=== PATIENT | female | born 1955 | race Caucasian/White ===

== ENCOUNTER → 2017-03-18 | Outpatient (CLI) | payer OTHER ==
[~2017-03-18] MED LIST: B CO1CAP2 PO; CAFF200T13 PO; CIPR-255 PO; GLUC1TAB22 PO; IBUP1CAP9 PO; MULT-839 PO; NUTRTAB44 PO; OMEG10002 PO; ONDA4TAB7 SL; RXC5 PO; TRAM-10 PO; [UNRECOGNIZED DRUG - CODE] PO
--- NOTE | 2017-03-19 14:36 | MAMMOGRAPHY REPORT ---
BILATERAL DIGITAL SCREENING MAMMOGRAM TOMOSYNTHESIS WITH CAD: 03/18/2017 CLINICAL HISTORY: Routine screening. Patient has no complaints. TECHNIQUE: Breast tomosynthesis in addition to standard 2D mammography was performed. Current study was also evaluated with a Computer Aided Detection (CAD) system. COMPARISON: Comparison is made to exams dated: 03/12/2016 mammogram, 03/08/2015 mammogram, 01/08/2013 mammogram, 12/27/2011 mammogram, 12/21/2010 mammogram - [facility], and 12/19/2008. BREAST COMPOSITION: There are scattered areas of fibroglandular density in both breasts. FINDINGS: A focal asymmetry in the upper outer far posterior left breast appears similar on prior ML O views dating back to at least 12/19/2008, therefore likely benign. No new suspicious mass, andrey ectural distortion or cluster of microcalcifications is seen. IMPRESSION: ACR BI-RADS CATEGORY 1: NEGATIVE There is no mammographic evidence of malignancy. A 1 year screening mammogram is recommended. The p atient will receive written notification of the results. Approximately 10% of breast cancers are not detected with mammography. A negative mammographic repor t should not delay biopsy if a clinically suggestive mass is present. Roro Mullen M.D. ay/:03/19/2017 07:25:54 Seo Associate: Saba Valenzuela, [facility] letter sent: Normal 1/2 BI-RADS Code: ACR BI-RADS Category 1: Negative
== END | disposition home or self-care (01) ==
LOC: C.MAMM 12:59
PROVIDERS: ATTEND Family Medicine
DX: Z12.31 Encounter for screening mammogram for malignant neoplasm of breast (principal)

== ENCOUNTER 2024-08-04 06:12 | Inpatient (IN) ==
--- NOTE | 2024-07-12 10:29 | PAT Medication Instructions ---
Medication Instructions Date of Service July 12, 2024 Home Medications caffeine 200 mg tablet 200 mg PO BID PRN Other cholecalciferol (vitamin D3) 125 mcg (5,000 unit) tablet (Vitamin D3) 125 mcg PO DAILY ibuprofen 200 mg tablet 200 mg PO HS magnesium 200 mg tablet 400 mg PO QAM naproxen sodium 220 mg tablet (Aleve) 440 mg PO QAM thiamine HCl (vitamin B1) 100 mg tablet 100 mg PO DAILY trazodone 100 mg tablet 100 mg PO HS ASK your surgeon for instructions caffeine 200 mg tablet 200 mg PO BID PRN Other ibuprofen 200 mg tablet 200 mg PO HS naproxen sodium 220 mg tablet (Aleve) 440 mg PO QAM DO NOT take the morning of surgery cholecalciferol (vitamin D3) 125 mcg (5,000 unit) tablet (Vitamin D3) 125 mcg PO DAILY magnesium 200 mg tablet 400 mg PO QAM thiamine HCl (vitamin B1) 100 mg tablet 100 mg PO DAILY Take morning of surgery trazodone 100 mg tablet 100 mg PO HS NOTHING TO EAT OR DRINK AFTER MIDNIGHT Other Notes If you have any questions please call us at [phone] or [phone] or [phone] or [phone]
--- NOTE | 2024-07-15 09:10 | Anesthesiology Consultation ---
Date of Service July 15, 2024 Assessment & Plan (1) Encounter for pre-operative examination: - Infectious disease screening: Per assessment on 07/15/24: No known recent infectious disease contacts or current infectious disease symptoms. - Patient acceptable risk for surgery pending surgeon-ordered PCP preop evaluation ([facility], appt 07/15). Chart Review Chart Review: Patient seen in Pre Admission Testing Teaching & Discussion Pre-Anesthesia Teaching/Discussion Notes: Instructed NPO after midnight before surgery,except medications with 15 cc of water. Medication instructions provided according to the PAT guidelines. History Surgery Operation Date: 08/04/24 07:45 Proposed Procedures p L1-L2 Lumbar Decompression, T11-L2 Lumbar Fusion - Rickey Dawson DO Height/Weight Height: 5 ft 3 in Weight: 68.5 kg Allergies Allergy/AdvReac Type Severity Reaction Status Date / Time Penicillins Allergy Severe Throat Verified 07/09/24 14:34 swelling Medications Home Medications Medication Instructions Recorded Confirmed Last Taken caffeine 200 mg tablet 200 mg PO BID PRN Other 07/09/24 07/09/24 Unknown cholecalciferol (vitamin D3) 125 125 mcg PO DAILY 07/09/24 07/09/24 Unknown mcg (5,000 unit) tablet (Vitamin D3) ibuprofen 200 mg tablet 200 mg PO HS 07/09/24 07/09/24 Unknown magnesium 200 mg tablet 400 mg PO QAM 07/09/24 07/09/24 Unknown naproxen sodium 220 mg tablet 440 mg PO QAM 07/09/24 07/09/24 Unknown (Aleve) thiamine HCl (vitamin B1) 100 mg 100 mg PO DAILY 07/09/24 07/09/24 Unknown tablet trazodone 100 mg tablet 100 mg PO HS 07/09/24 07/09/24 Unknown Past Medical History Medical History (Updated 07/15/24 @ 10:43 by Merlene Pena) History of bladder infections Post-op after last lumbar surgery approximately 2012, felt to be r/t catheter use with surgery Lumbar stenosis with neurogenic claudication Mitral valve prolapse Echo (2013, [facility]): Borderline posterior mitral leaflet prolapse, Mild MR PCP review of Echo 07/12/14: "echocardiogram is basically normal.. very mild posterior leaflet prolapse seen but that is a longstanding problem" Exercise / Class Metabolic Activity II 4-5 Yardwork/Stairs/Walk up hill (one FS: No CP, no SOB) Past Family History Family History Mother Diabetes Past Surgical History Surgical History History of adenoidectomy History of arthroscopy Right knee x1, Left knee x1 History of bilateral tubal ligation History of colonoscopy History of lumbar fusion L3-5 History of postoperative nausea and vomiting severe History of tonsillectomy Hx of foot surgery nerve removed from right foot Past Anesthesia History No Hx of Anesthesia Complications and No Family Hx of Anesthesia Complications History of PONV No Hx of Motion Sickness and History of PONV (severe) Social History Smoking Status: Never smoker Do You Dip or Chew Tobacco: No Hx Alcohol Use: No Hx Substance Use: No substance use type: does not use Review of Systems Patient denies chest pain, shortness of breath, dyspnea on exertion, fever, chi lls, cough, wheezing, palpitations. Physical Exam Vital Signs BP 141/66 P 67 TEMP 97.9 SP02 98%RA RESP 16 Physical Full cervical extension range of motion. Full TMJ range of motion. TMD 3 finger breaths Mallampati Score II Dentition: + missing teeth (molars) Lungs: clear throughout to auscultation Cardiac: regular rate and rhythm with rare extra beat, no murmurs noted Spine: normal Carotid arteries: negative bruit Extremities: no LE edema Lab Results Anesthesia Preop Results Results Anesthesia Widget: WBC 5.09 K/ul (4.8-10.8) 07/15/24 Hgb 14.0 g/dl (12.0-16.0) 07/15/24 Hct 41.7 % (37.0-47.0) 07/15/24 Plt 214 K/uL (130-400) 07/15/24 Na 137 mmol/L (136-145) 07/15/24 K 4.4 mmol/L (3.5-5.1) 07/15/24 Cl 102 mmol/L (98-107) 07/15/24 CO2 27 mmol/L (21-32) 07/15/24 BUN 24 mg/dl (6-23) H 07/15/24 Creat 0.77 mg/dl (0.6-1.2) 07/15/24 Glucose Level 94 mg/dl (70-99(Fasting)) 07/15/24 PT 11.2 Seconds (9.0-12.0) 07/15/24 PTT 27 Seconds (21-31) 07/15/24 INR 1.0 (0.9-1.1) 07/15/24 Urine Color Yellow 07/15/24 Urine Appearance Clear (Clear) 07/15/24 Urine pH 6.5 (4.5-7.5) 07/15/24 Urine Specific [place] 1.020 (1.000-1.030) 07/15/24 Urine Protein Negative (Negative) 07/15/24 Urine Glucose (UA) Negative (Negative) 07/15/24 Urine Ketones Negative (Negative) 07/15/24 Urine Blood Negative (Negative) 07/15/24 Urine Nitrite Negative (Negative) 07/15/24 Urine Bilirubin Negative (Negative) 07/15/24 Urine Urobilinogen Negative (Negative) 07/15/24 Urine Leukocyte Esterase Negative (Negative) 07/15/24 Blood Type A Positive 07/15/24 Antibody Screen NEGATIVE 07/15/24 Testing Electrocardiogram Date: 07/15/24 NSR at 66bpm. Normal ECG. Chest X-Ray Date: 07/15/24 FINDINGS: Posterior fixation hardware is seen in the lumbar spine. The cardiomediastinal silhouette is normal. The lungs are clear. No evidence of pleural effusion or pneumothorax. IMPRESSION: No acute chest disease.
--- OUTSIDE RECORDS SUMMARY | 2024-08-04 06:54 | External Medical Summary | Summary of Care ---
Author Name Unknown Organization [facility] Address [address] [place] [address] Phone [phone] Care Team Providers Care Electronic Gluer Name Role Phone Rowena Lau PA-C Primary Care Provider [phone] Reason for Visit * Reason Comments Physical-Exam Encounter Details Date Type Department Care Team (Latest Contact Info) Description 07/15/2024 3:40 PM EDT Office Visit Family Practice [facility] [address] [facility] [place] [id number] Radha Vredugo MD [address] [facility] [place] [address] Pre-op evaluation*; Spinal stenosis of lumbar region with neurogenic claudication; Lumbar degenerative disc disease; Persistent insomnia; History of diverticulitis Allergies Active Allergy Reactions Criticality Noted Date Comments Penicillins 06/23/2001 anaphylactic documented as of this encounter (statuses as of 07/15/2024) Medications Medication Sig Dispensed Refills Start Date End Date Status ibuprofen (MOTRIN) 400 MG Tablet Take 2 Tablets by mouth every 4 hours as needed for Pain. Active polyethylene glycol 3350 (MIRALAX) packet Take 1 Packet by mouth in the morning. Active Triamcinolone Acetonide 0.1 % Mouth/Throat Paste (Kenalog In Orabase)Indicatio ns:Mouth ulcer Apply to inside of cheek 2 times a day . 5 g 12 02/28/2022 Active Super Collagen Plus Vitamin C 1000-10 MG Oral Tablet (Collagen-Vitamin C) Take by mouth. Active Biotin Powder Use as directed. Active Vitamin D3 125 MCG (5000 UT) Oral Tablet Chewable Take by mouth. Active traZODone HCl 100 MG Oral Tablet (Desyrel)Indicati ons:Persistent insomnia Take 1 Tablet by mouth at bedtime. 90 Tablet 3 12/09/2023 Active Fluticasone Propionate 50 MCG/ACT Nasal Suspension (Flonase)Indicati ons:PND (post-nasal drip) Administer 2 Sprays into each nostril at bedtime. 16 g 2 02/02/2024 Active Benzonatate 100 MG Oral Capsule (Tessalrichmond [place])Indication s:Upper respiratory tract infection, unspecified type Take 1 Capsule by mouth 3 times a day as needed for Cough. Do not cut, crush, or chew. 50 Capsule 1 02/02/2024 Discontinued documented as of this encounter (statuses as of 07/15/2024) Active Problems Problem Noted Date Diagnosed Date History of diverticulitis 07/15/2024 Persistent insomnia 12/09/2022 Status post laminectomy with spinal fusion 07/29 Spinal stenosis of lumbar re gion with neurogenic claudication 07/20/2014 MVP (mitral valve prolapse) 07/05/2014 documented as of this encounter (statuses as of 07/15/2024) Resolved Problems Problem Noted Date Diagnosed Date Resolved Date ADVANCE DIRECTIVE INFORMATION 09/25/2005 04/04/2017 Overview: No, Advance Directive brochure offered , patient declined. documented as of this encounter (statuses as of 07/15/2024) Immunizations Name Administration Dates Next Due Pneumococcal Conjugate Vacc, 13 Valent (Prevnar) 09/30/2019 Season Influenza, Quad, PF, Adjuvanted, 65+ Yrs, IM (FLUAD) 10/24/2023,09/19/2020 Seasonal Influenza, PF, 6 M & above, IM , (FluLaval or Fluzone) 10/30/2017 Seasonal Influenza, Quadrivalent, No Preserve, I M 10/08/2018,10/18/2015 Seasonal Influenza, Split, IIV3, With Preserve, Inj 09/09/2014,10/20/2013 Seasonal Influenza, Trivalent, Adjuvanted, 65+ y rs 09/30/2019 Seasonal Influenza, Trivalen t, High Dose, No Preserve, IM 10/08/2022 TDAP (age 10 and older)(Boostrix) 04/29/2012 Zoster Vaccine Recombinant (Shingrix) 03/15/2022 documented as of this encounter Social History Tobacco Use Types Packs/Day Years Used Date Smoking Tobacco: Never Smokeless Tobacco: Never Alcohol Use Standard Drinks/Week Comments No 0 (1 standard drink = 0.6 oz pur e alcohol) PHQ-2 Answer Date Recorded PHQ-2 Score 0 10/27/2020 Utilities Answer Date Recorded Do you have trouble paying y our heating, water, or electric bill? (Adult - for ages 18 years and over) Not on file 05/11/2024 Is your family able to pay t he heat, water, or electric bill? (Household - for ages 0-17 years) Not on file 05/11/2024 Does your family have access to good internet? (Household - for ages 0-17 years) Not on file 05/11/2024 Social Connections Answer Date Recorded How often do you feel lonely or isolated from those around you? (Adult - for ages 18 years and over) Not on file 05/11/2024 Sex and Gender Information Value Date Recorded Sex Assigned at Not on file Gender Identity Not on file Sexual Orientation Not on file Job Start Date Occupation Industry Not on file Not on file Not on file documented as of this encounter Last Filed Vital Signs Vital Sign Reading Time Taken Comments Blood Pressure 130/68 07/15/2024 3:16 PM EDT Pulse 39 07/15/2024 3:16 PM EDT Temperature 36.9 C (98.4 F) 07/15/2024 3:16 PM ED T Respiratory Rate 17 07/15/2024 3:16 PM EDT Oxygen Saturation 97% 07/15/2024 3:16 PM EDT Inhaled Oxygen Concentration - - Weight 68.5 kg (151 lb) 07/15/2024 3:16 PM EDT Height - - Body Mass Index 26.79 12/09/2023 8:18 AM EST documented in this encounter Progress Notes * Radha Verdugo MD - 07/15/2024 3:22 PM EDT Images from the original note were not included. Pre-Operative Medical Evaluation Procedure Information Type of Surgery: T11-L2 fusion Referring Physician / Surgeon: Dr. Dawson Date of procedure: 08/04/24 Brief History of Present Illness: Patient presents today for pre-operative evaluation. No new concerns. Review of Systems: Constitutional ROS: No change in weight, No weakness, No fatigue, and No fevers, sweats, or chills Eye ROS: No eye pain, redness, discharge Ear ROS: No ear pain and No tinnitus or vertigo Nose ROS: No nasal stuffiness Mouth/Throat ROS: No sore throat Neck ROS: No swollen glands Pulmonary ROS: No cough, sputum, or hemoptysis, No wheezing, No rales, No shortness of breath, and No recent change in breathing Cardiovascular ROS: No chest pain, No dyspnea on exertion, No edema, No palpitations, and No syncope Gastrointestinal ROS: No abdominal pain, No change in bowel habits, and No nausea, vomiting, diarrhea, or constipation Musculoskeletal/Extremities ROS: No pain, redness or swelling on the joints Hematologic/Lymphatic ROS: No abnormal bleeding and No bruising Skin/Integumentary ROS: No rash Neurologic ROS: Normal balance and No headaches Medical History Problem List: History of diverticulitis (07/15/2024) Persistent insomnia (12/09/2022) Status post laminectomy with spinal fusion (07/29/2014) Spinal stenosis of lumbar region with neurogenic claudication (07/20/2014) MVP (mitral valve prolapse) (07/05/2014) Current Medications Fluticasone Propionate 50 MCG/ACT Nasal Suspension (Flonase), 2 [place], Each Nostril, HS Biotin Powder, Use as directed. Super Collagen Plus Vitamin C 1000-10 MG Oral Tablet (Collagen-Vitamin C), Take by mouth. traZODone HCl 100 MG Oral Tablet (Desyrel), 100 mg, Oral, HS Vitamin D3 125 MCG (5000 UT) Oral Tablet Chewable, Take by mouth. Triamcinolone Acetonide 0.1 % Mouth/Throat Paste (Kenalog In Orabase), Apply to inside of cheek 2 times a day . polyethylene glycol 3350 (MIRALAX) packet, 17 g, Oral, Daily(AM) ibuprofen (MOTRIN) 400 MG Tablet, 800 mg, Oral, Q4H PRN Allergies: Penicillins Past Medical History: has a past medical history of Back disorder, Diverticulitis of colon, Hyperplastic colon polyp (05/23/2015), MVP (mitral valve prolapse), Persistent insomnia (12/09/2022), Status post laminectomy with spinal fusion (07/29/2014), and Varicella. Past Surgical History: has a past surgical history that includes MRI Knee without IV Contrast (06/09/2002); MAMMOGRAM - BILATERAL (09/13/2004); information; information; information; dilation and curettage (d&c); ligate/cut oviduct(s); colonoscopy, remove lesion (10/24/2004); mammogram screening-bilateral (12/20/2009); Colonoscopy, Diagnostic (Rectum) (05/23/2015); knee arthroscopy/surgery (07/30/2016); and Colonoscopy, Diagnostic (Rectum) (12/19/2020). Social History: reports that she has never smoked. She has never used smokeless tobacco. She reports that she does not drink alcohol and does not use drugs. Family History: family history includes Cancer in her aunt (unspecified) and father; Diabetes in her mother; Heart Disorder in her father; Neurological Disorder in her brother; No Past Hx in her brother, son, and son. Anesthesia History Type of Anesthesia: General Endotracheal and Caudal block Anesthesia reaction: History of vomiting after anesthesia History of surgical complications: None Personal history of venous thromboembolic disease: None Physical Exam Vitals: 07/15/24 1516 Temp: 36.9 C (98.4 F) Pulse: 39 Resp: 17 SpO2: 97% BP: 130/68 General: Well-appearing, no acute distress HENT: Head is normocephalic and atraumatic, no pharyngeal erythema, nose normal, ear canals normal and tympanic membranes clear bilaterally Eyes: No conjunctival injection, no scleral icterus, EOMI, PERRLA Cardiovascular: Regular rate and rhythm, no murmur Respiratory: Good respiratory effort, breath sounds equal and clear to auscultation bilaterally Abdomen: Soft, non-distended, non-tender, normoactive bowel sounds Extremities: No edema Skin: Warm and dry Neurological: Alert and oriented, no focal deficits noted Psychiatric: Appropriate mood and affect Labs reviewed and are significant for: N/A EKG by my review is significant for: N/A Surgical Risk Scoring Revised Cardiac Risk Index (RCRI) High-risk type of surgery (examples include vascular and any open intraperitoneal or intrathoracic procedures): 0=No History of ischemic heart disease (history of myocardial infarction or positive exercise test, current compliant of chest pain considered to be secondary to myocardia ischemia, use of nitrate therapy, or ECG with pathological Q waves; do not count prior coronary revascularization procedure unless one of the other criteria for ischemic heart disease is present): 0=No History of heart failure: 0=No History of cerebrovascular disease: 0=No Diabetes mellitus requiring treatment with insulin: 0=No Preoperative serum creatinine >2.0 mg/dL (177 micromol/L): 0=No Pt has revised cardiac index score of: No Risk Factors- 0.4% (95% CI: 0.1-0.8) Screening for Obstructive Sleep Apnea (STOP-BANG) Do you Snore loudly? 0=No Do you often feel Tired, Fatigued, or Sleep? 0=No Has anyone Observed you Stop Breathing or Choking/Gasping during sleep? 0=No Do you have or are you being treated for High Blood Pressure? 0=No BMI over 35? 0=No Age older than 50? 1=Yes Neck size large? (For males - 17 inches or larger, For females - 16 inches or larger) 0=No Male? 0=No Score 0-2:low risk CASIE, 3-4: intermediate risk of CASIE, 5-8: high risk CASIE 1 Assessment and Plan Pre-op evaluation Spinal stenosis of lumbar region with neurogenic claudication Lumbar degenerative disc disease Persistent insomnia History of diverticulitis Functional Assessment They are able to walk up a flight of stairs, walk two blocks at a moderate pace, and do heavy housework like vacuuming. The patient's functional status is good (greater than 4 METS). Surgical Risk Assessment Patient is low medical risk for the listed procedure. Medication adjustments: Per primary team Additional consults or testing: None This note was electronically signed by Radha Verdugo MD I spent a total of 30-39 minutes (exact time 30 mins) on the date of service in preparation, delivery, and documentation of the care provided to Linsey Ga excluding any time spent in the performance of separately billed services or time spent by another provider/QHP. documented in this encounter Nursing Notes * Aurora Marcos LPN - 07/15/2024 3:14 PM EDT Linsey Alfonso Ga presents for pre op physical exam. Medications & HM reviewed. documented in this encounter Plan of Treatment Upcoming Encounters Date Type Department Care Team (Late st Contact Info) Description 10/14/2024 8:00 AM EST Office Visit Dermatology, Latanya Mckeon [address] [place] [address] Jeana Melendez PA-C [address] [place] [address] Scheduled Procedures Name Priority Associated Diagnoses Date/Ti me COLONOSCOPY FLEXIBLE PROXIMAL DIAGNOSTIC Recall History of colon polyps Health Maintenance Due Date Last Done Comments Cologuard 1999 Sigmoidoscopy 1999 Fecal Occult Blood Test 09/27/2020 09/27/2019 Pneumococcal Vaccine: 65+ Years (2 of 2 - PPSV23 or PCV20) 09/30/2020 09/30/2019 Depression Screening 10/27/2021 10/27/2020 DTaP,Tdap,and Td Vaccines (2 - Td or Tdap) 04/29/2022 04/29/2012 Zoster Vaccines (2 of 2) 05/10/2022 03/15/2022 COVID-19 Vaccine (1 - 2022- season) 2023 Influenza Vaccine (FLU shot) (#1) 2024 10/24/2023, 10/08/2022, 09/19/2020, Additional history exists Mammogram 09/25/2024 09/25/2023, 11/2021, 05/10/2021, Additional history exists Colonoscopy 12/19/2025 12/19/2020, 11/25, 05/23/2015, Additional history exists Colorectal Cancer Screening 12/19/2025 DXA Scan 06/29/2026 06/29/2019 Lipid Panel 12/03/2028 12/03/2023, 11/25, 02/28/2022, Additional history exists RETIRED - COLONOSCOPY-EVERY 5 YRS AGES 18-100 Discontinued 12/19/2020, 12/19/2020, 05/23/2015, Additional history exists HPV (Gardasil) Vaccine Aged Out No lo nger eligible based on patient's age to complete this topic Hepatitis B Vaccine Aged Out No longe r eligible based on patient's age to complete this topic MENINGOCOCCAL (MENACTRA/MENVEO) Aged Out No longer eligible based on patient's age to complete this topic documented as of this encounter Medical Devices Not on filedocumented as of this encounter Visit Diagnoses Diagnosis Pre-op evaluation- Primary Preoperative examination, unspecified Spinal stenosis of lumbar region with neurogenic claudication Spinal stenosis, lumbar region, with neurogenic claudication Lumbar degenerative disc disease Degeneration of lumbar or lumbosacral intervertebral disc Persistent insomnia Persistent disorder of initiating or maintaining sleep History of diverticulitis documented in this encounter Care Teams Electronic Gluer Relationship Specialty Start Date End Date JudiFebruary Carlos Manuel, TRUDY [address] [place] [address] PCP - 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
--- OUTSIDE RECORDS SUMMARY | 2024-08-04 06:54 | External Medical Summary | Summary of Care ---
Author Name Unknown Organization [facility] Address [address] [facility] [place] [place] [place] [address] Phone [phone] Care Team Providers Care Plastic Printer Name Role Phone Rowena Lau PA-C Primary Care Provider [phone] Reason for Referral * Evaluate & Treat - Unlimited Visits (Within 30 days (routine)) - Authorized Specialty Diagnoses / Procedures Referred By Juanpablo gonzales Referred To Contact Dermatology Diagnoses Nevus Rowena Lau PA-C [address] [place] [id number] Referral ID Status Reason Start Date Expiration Date Visits Requested Visits Authorized [id number] Authorized Specialty Services Required 06/10/[phone] Question Answer Referral Priority Within 30 days (routine) Where should this appointment be scheduled? External Are you referring the patient for Mohs Surgery and have a current positive skin cancer biopsy result? No What is the reason for the patient referral? Rash/Skin Check/Eval of Lesion or Mole Reason for Visit * Reason Onset Date Comments Referral 06/10/2024 Encounter Details Date Type Department Care Team (Late st Contact Info) Description 06/10/2024 Telephone Family Practice [facility] Arndt [address] [place] [phone] Rowena Lau PA-C [address] [place] [id number] Referral Allergies Active Allergy Reactions Criticality Noted Date Comments Penicillins 06/23/2001 anaphylactic documented as of this encounter (statuses as of 07/19/2024) Medications Medication Sig Dispensed Refills Start Date End Date Status ibuprofen (MOTRIN) 400 MG Tablet Take 2 Tablets by mouth every 4 hours as needed for Pain. Active polyethylene glycol 3350 (MIRALAX) packet Take 1 Packet by mouth in the morning. Active Triamcinolone Acetonide 0.1 % Mouth/Throat Paste (Kenalog In Orabase)Indications :Mouth ulcer Apply to inside of cheek 2 times a day . 5 g 12 02/28/2022 Active Super Collagen Plus Vitamin C 1000-10 MG Oral Tablet (Collagen-Vitamin C) Take by mouth. Active Biotin Powder Use as directed. Activ e Vitamin D3 125 MCG (5000 UT) Oral Tablet Chewable Take by mouth. Activ e traZODone HCl 100 MG Oral Tablet (Desyrel)Indication s:Persistent insomnia Take 1 Tablet by mouth at bedtime. 90 Tablet 3 12/09/2023 Active Fluticasone Propionate 50 MCG/ACT Nasal Suspension (Flonase)Indication s:PND (post-nasal drip) Administer 2 Sprays into each nostril at bedtime. 16 g 2 02/02/2024 Active documented as of this encounter (statuses as of 07/19/2024) Active Problems Problem Noted Date Diagnosed Date History of diverticulitis 07/15/2024 Persistent insomnia 12/09/2022 Status post laminectomy with spinal fusion 07/29 Spinal stenosis of lumbar re gion with neurogenic claudication 07/20/2014 MVP (mitral valve prolapse) 07/05/2014 documented as of this encounter (statuses as of 07/19/2024) Resolved Problems Problem Noted Date Diagnosed Date Resolved Date ADVANCE DIRECTIVE INFORMATION 09/25/2005 04/04/2017 Overview: No, Advance Directive brochure offered , patient declined. documented as of this encounter (statuses as of 07/19/2024) Immunizations Name Administration Dates Next Due Pneumococcal [...] on file documented as of this encounter Miscellaneous Notes * Telephone Encounter - Rowena Lau PA-C - 06/10/2024 8:44 PM EDT Schedule derm * Telephone Encounter - Shirley Arora, MED ASSIST - 06/10/2024 2:25 PM EDT Please see patient's myg message. Thank you! Referral pended, if agreeable. * Telephone Encounter - Shanita Davis OSA - 06/10/2024 1:22 PM EDT Has the patient been seen for this problem? (Y/N)?: Y If No, an appt needs to be scheduled before a referral will be placed (exception: proceed with referral request if referral request is for a yearly routine appointment with speciality) Patient Name: Linsey Ga Patient Primary care provider: Rowena Lau PA-C Does this need to be an insurance referral (Y/N)?: N If Yes, does the insurance referral need to be placed into the [employer] system? Name of preferred specialist: Michelle Jonse PA-C Type of specialist: Dermatology Location of specialist: [facility] Phone #: [phone] Specialist's Fax #: [phone] Reason for visit: moles on her body she would like checked Date of visit: not yet scheduled documented in this encounter Plan of Treatment Upcoming Encounters Date Type Department Care Team (Late st Contact Info) Description 10/14/2024 8:00 AM EST Office Visit Dermatology, Latanya Mckeon [address] [address] Jeana Melendez PA-C [address] [phone] Scheduled Procedures Name Priority Associated Diagnoses Date/Ti me COLONOSCOPY FLEXIBLE PROXIMAL DIAGNOSTIC Recall History of colon polyps Scheduled Referrals Name Type Priority Associated Diagnoses Orde r Schedule DERMATOLOGY REFERRAL OP Referral Within 30 days (routine) Nevus Ordered: 06/10/2024 Health Maintenance Due Date Last Done Comments Cologuard 1999 Sigmoidoscopy 1999 Fecal Occult Blood Test 09/27/2020 09/27/2019 Pneumococcal Vaccine: 65+ Years (2 of 2 - PPSV23 or PCV20) 09/30/2020 09/30/2019 Depression Screening 10/27/2021 10/27/2020 DTaP,Tdap,and Td Vaccines (2 - Td or Tdap) 04/29/2022 04/29/2012 Zoster Vaccines (2 of 2) 05/10/2022 03/15/2022 COVID-19 Vaccine (1 - season) 2023 Influenza Vaccine (FLU shot) (#1) 2024 10/24/2023, 10/08/2022, 09/19/2020, Additional history exists Mammogram 09/25/2024 09/25/2023, 1111/2021, 05/10/2021, Additional history exists Colonoscopy 12/19/2025 12/19/2020, [...] as of this encounter Visit Diagnoses Diagnosis Nevus- Primary Benign neoplasm of skin, site unspecified documented in this encounter Care Teams Plastic Printer Relationship Specialty Start Date End Date Judi Rowena TRUDY Horowitz [address] [place], [place] [id number] PCP - General Physician Ob Gyn 03/06/21 documented as of this encounter
[2024-08-04] MEDS ORDERED: LIDOCAINE 2% 2 ML VIAL/AMP(20MG/ML) INFIL ONE (06:59)
[2024-08-04] MEDS ORDERED: ROCURONIUM BROMIDE 10 MG/ML 5 ML VIAL IV ONE (06:59)
[2024-08-04] MEDS ORDERED: PROPOFOL IV EMULSION 10 MG/ML 20 ML VIAL IV ONE (06:59)
[2024-08-04] MEDS ORDERED: ONDANSETRON INJ 2 MG/ML 2 ML VIAL ONE (06:59)
[2024-08-04] MEDS ORDERED: DEXAMETHASONE SOD INJ 4 MG/ML VIAL ONE (06:59)
[2024-08-04] MEDS ORDERED: GLYCOPYRROLATE 0.2 MG/ML VIAL ONE (06:59)
[2024-08-04] MEDS ORDERED: MIDAZOLAM HCL 1 MG/ML 2ML VIAL ONE (07:00)
[2024-08-04] MEDS ORDERED: fentaNYL citrate PF 100 MCG/2 ML VIAL ONE (07:00)
[2024-08-04] MEDS ORDERED: SUGAMMADEX SODIUM 200 MG/2 ML VIAL IV ONE (07:02)
[2024-08-04] MEDS: LR 15ML/HR IV SCH (07:24)
[2024-08-04] MEDS: GABAPENTIN 300 MG CAP PO SCH (07:24)
[2024-08-04] MEDS: ACETAMINOPHEN 500 MG TAB PO SCH (07:24)
[2024-08-04] MEDS: CeleBREX 200 MG CAP PO SCH (07:24)
[2024-08-04] MEDS: SCOPOLAMINE 1 MG/72 HR TDSY PATCH TD ONE (07:24)
[2024-08-04] MEDS: LR 60ML/HR IV SCH (07:25)
--- NOTE | 2024-08-04 07:39 | History & Physical Bridge Note ---
Date of Service August 04, 2024 History & Physical Bridge Note I have examined the patient, reviewed the History & Physical and in the interval since the performance of the History & Physical I have noted the following changes of clinical significance: no changes noted
--- NOTE | 2024-08-04 07:40 | History & Physical Report ---
Date of Service August 04, 2024 Assessment & Plan (1) Neurogenic claudication due to lumbar spinal stenosis: Plan: Lumbar decompression L1-L2 lumbar fusion T11-L2 History of Present Illness Chief Complaint: Back and leg pain Primary Care Provider: Rowena Lau PA-C This is a 69-year-old female presents chronic persistent back and leg pain after having course of nonoperative care she is here for surgical invention. Allergies Allergy/AdvReac Type Severity Reaction Status Date / Time Penicillins Allergy Severe Throat Verified 08/04/24 06:54 swelling Home Medications Medication Instructions Recorded Confirmed Type caffeine 200 mg tablet 200 mg PO BID PRN Other 07/09/24 08/04/24 History cholecalciferol (vitamin D3) 125 125 mcg PO DAILY 07/09/24 08/04/24 History mcg (5,000 unit) tablet (Vitamin D3) ibuprofen 200 mg tablet 200 mg PO HS 07/09/24 08/04/24 History magnesium 200 mg tablet 400 mg PO QAM 07/09/24 08/04/24 History naproxen sodium 220 mg tablet 440 mg PO QAM 07/09/24 08/04/24 History (Aleve) thiamine HCl (vitamin B1) 100 mg 100 mg PO DAILY 07/09/24 08/04/24 History tablet trazodone 100 mg tablet 50 mg PO HS 07/09/24 08/04/24 History Past Med/Surg History Problem List (Updated 08/04/24 @ 07:40 by Rickey Dawson DO) Neurogenic claudication due to lumbar spinal stenosis Encounter for pre-operative examination Medical History (Updated 08/04/24 @ 07:40 by Rickey Dawson DO) History of bladder infections Post-op after last lumbar surgery approximately 2012, felt to be r/t catheter use with surgery Mitral valve prolapse Echo (2014, [facility]): Borderline posterior mitral leaflet prolapse, Mild MR PCP review of Echo 07/12/14: "echocardiogram is basically normal.. very mild posterior leaflet prolapse seen but that is a longstanding problem" Lumbar stenosis with neurogenic claudication Surgical History Hx of foot surgery nerve removed from right foot History of postoperative nausea and vomiting severe History of bilateral tubal ligation History of arthroscopy Right knee x1, Left knee x1 History of colonoscopy History of tonsillectomy History of adenoidectomy History of lumbar fusion L3-5 Family History Mother Diabetes Social History Smoking Status: Never smoker Second Hand Exposure: No; Do You Dip or Chew Tobacco: No; Tobacco Cessation Education Requested by Patient: No Hx Alcohol Use: No Hx Substance Use: No Preferred Language: Iranian Communication Ability: Effective Mathematics Teacher Required: No Beliefs That Will Affect Care: None Current Living Situation: Spouse Other Information That Helps Us Care for You: No Feels Safe at Home: Yes Safety Concerns: Feels Safe At This Time Assistive Devices: None Physical Exam Physical Exam: Patient is alert and oriented heart regular in rhythm Lungs clear Results & Data Results & Data Vital Signs (Past 12 Hours) Vital Signs Temp Pulse Resp BP Pulse Ox O2 Del Method 08/04/24 06:58 36.8 C 73 20 147/81 H 97 Room Air
[2024-08-04] MEDS ORDERED: ATROPINE SULFATE 0.1 MG/ML 10ML SYR IV PRN (07:46)
[2024-08-04] MEDS ORDERED: PROMETHAZINE HCL 6.25 MG in SODIUM CHLORIDE 0.9% 50 ML IV PRN (07:46)
[2024-08-04] MEDS ORDERED: ePHEDrine sulfate 50 MG/ML AMP IV PRN (07:46)
[2024-08-04] MEDS: CLINDA 900 MG **Premixed Bag IV SCH (08:00)
[2024-08-04] MEDS ORDERED: DROPERIDOL 5 MG/2 ML VIAL ONE (08:13)
[2024-08-04] MEDS ORDERED: ePHEDrine sulfate 50 MG/5 ML SYR ONE (08:43)
[2024-08-04] MEDS ORDERED: PHENYLEPHRINE 100MCG/ML 10ML SYR IV ONE (08:43)
[2024-08-04] MEDS: ceFAZolin 330 MG/ML 1 GM VIAL ONE (08:53)
[2024-08-04] MEDS: BUPIVACAINE/EPINEPHRINE 0.25% 1:200,000 30 ML VIAL ONE (08:53)
[2024-08-04] MEDS: FLOSEAL HEMOSTATIC MATRIX 10ML TOP ONE (09:57)
--- NOTE | 2024-08-04 10:09 | Operative Report ---
Post Operative Report Pre & Post Diagnosis Operation Date: 08/04/24 07:45 Pre-Op Diagnosis: Lumbar spinal stenosis with neurogenic claudication Post-Op Diagnosis: Same I identified the patient and participated in the time-out.: Yes Procedure Operation Date: 08/04/24 07:45 Actual Procedures #1 removal of posterior instrumentation L2 pedicle screw and connector. #2 exploration of fusion L2-L3. #3 decompression T12-L1 L1-L2 with bilateral medial facetectomies and foraminotomies. #4 posterior spinal fusion T10-L2. #5 placement of posterior instrumentation T11-L1 with connectors at L2. #6 interbody fusion L1-L2. #7 placement of Spira 8 x 22 mm cage at L1-L2. #8 placement locally harvested morselized autograft and posterior gutters. #9 deloris cement infuse collagen sponge combined with Koros in the posterior lateral gutters and os design interbody space. #10 application of versa wrap over the exposed dura. Surgeon Rickey Dawson, Vest Busheler Radha Cantrell Estimated Blood Loss 200 Findings Consistent with Post-Op Diagnosis Specimens None Indications This is a 6-year-old female who presents publish diagnosis of failed course of nonoperative care is here for surgical invention. Description of Procedure Patient was met with identified informed was obtained. Patient was then taken to the operative suite underwent patient placed in a prone position on the Ruben table atop the Iván frame. All bony prominences well-padded eyes inspected to ensure no external precipice upon the. This point the thoracolumbar spine was prepped and draped in a sterile fashion. Sharp dissection with the assistance of Bovie cautery form down to and exposing the lamina and transverse processes of T10-T11 T12-L1 and the instrumentation at L2- L3. And then proceeded to remove the connector and pedicle screw of L2 to expose the zaina remaining from L2-L3. Then performed a complete laminectomy of L1 including bilateral medial facetectomies and foraminotomies addressing severe spinal stenosis followed by laminectomy of the 12 with bilateral medial facetectomies and foraminotomies. Pedicle screws then placed in T11 T12-L1 bilaterally with assistance of fluoroscopy and by way of transforaminal approach on the left a discectomy of L1-2 was performed endplates curetted subcortical bleeding bone and 8 x 22 mm spiral cage filled with os design tapped in position. Connectors were placed to the L2-L3 portion of the zaina and then new and a zaina was then inserted and locked into position from T11-L1. Transverse processes of [id number] L1-L2 burred to subcortical bleeding bone. Infuse collagen sponge combined with Koros bone graft and local graft placed in posterior gutters. Versa wrap placed over the exposed dura. 15 round VEDA drain inserted. The incision was then closed with 1 Vicryl to fascia 2-0 Vicryl subcutaneously and 4-0 Monocryl for final skin closure. Steri-Strips sterile dressing placed. Patient waken taken PACU stable condition. Please note spinal cord monitoring was utilized at the procedure no changes noted. Radha Cantrell was present at the entire surgery and while the patient positioning complex portion of the surgery and final skin closure. Im ordering 20 grams of Triple Cement Collagen Powder (fotobabble [id number]) to treat an incision wound that was caused by a spine procedure. The incision is approximately 2 cm(W) x 4 cm(L) into the joint (D) in size and is a full thickness wound. Triple Cement collagen comes in 1 gram packets so 20 packets were ordered. Given the size of the wound, with light to moderate exudate I chose to order a 20 day supply. The patient will be provided instructions for proper application of the collagen wound kit. The patient will be asked to apply the collagen powder daily and then cover it with sterile dressings dispensed. Collagen was selected as I expect the collagen to attract monocytes and fibroblasts, act as a sacrificial substrate for MMPs, and ultimately proved a matrix for tissue and vessel growth. The collagen will act as a primary dressing in this scenario. It is medically necessary for proper healing of these wounds to improve bioavailability and contact with each wound surface, this is also to help prevent infection of wounds and promote healing ultimately leading to a better healing outcome and limit the risk of infection. I attest to the content of the Intraoperative Record and any orders documented therein. Any exceptions are noted below.
[2024-08-04] MEDS: HYDROmorphone INJ 2 MG/ML SYR/VIAL IV PRN (10:44)
[2024-08-04] MEDS: LACTATED RINGER'S 1,000 ML IV SCH (11:45)
[2024-08-04] MEDS ORDERED: diphenhydrAMINE Capsule 25 MG CAP PO PRN (11:53)
[2024-08-04] MEDS ORDERED: NALOXONE HCL 0.4 MG/1 ML VIAL/CARP IV PRN (11:53)
[2024-08-04] MEDS ORDERED: bisacodyL 10 MG SUPP PR PRN (11:53)
[2024-08-04] MEDS ORDERED: LORazepam 2 MG/1 ML VIAL IV PRN (11:53)
[2024-08-04] MEDS ORDERED: METOCLOPRAMIDE HCL INJ 5 MG/ML 2 ML VIAL IV PRN (11:53)
[2024-08-04] MEDS ORDERED: hydrOXYzine HCl 25 MG TAB PO PRN (11:53)
[2024-08-04] MEDS ORDERED: PROMETHAZINE 12.5 MG/50.5 ML BAG IV PRN (11:53)
[2024-08-04] MEDS ORDERED: MAGNESIUM HYDROXIDE SUSP 30 ML UDC PO PRN (11:53)
[2024-08-04] MEDS ORDERED: DO NOT ADMINISTER PNEUMOCOCCAL VACCINE PRN (11:53)
[2024-08-04] MEDS ORDERED: LORazepam 0.5 MG TAB PO PRN (11:53)
[2024-08-04] MEDS ORDERED: CAFFEINE 200 MG PO PRN (11:53)
[2024-08-04] MEDS ORDERED: ALUMINUM/MAGNESIUM SUSP 30 ML UDC PO PRN (11:53)
[2024-08-04] MEDS ORDERED: SOD PHOSPHATE/SOD BIPHOSPHATE ENEMA 132 ML BTL PR PRN (11:53)
[2024-08-04] MEDS ORDERED: ACETAMINOPHEN 500 MG TAB PO PRN (11:53)
[2024-08-04] MEDS ORDERED: ONDANSETRON 4 MG OD TAB PO PRN (11:53)
[2024-08-04] MEDS ORDERED: DO NOT ADMINISTER FLU VACCINE PRN (11:53)
[2024-08-04] MEDS ORDERED: HYDROmorphone INJ 0.5 MG/0.5 ML SYR IV PRN (11:53)
[2024-08-04] MEDS ORDERED: FAMOTIDINE 20 MG TAB PO PRN (11:53)
[2024-08-04] MEDS: ALLERGY Noted to ORDERED Medication SCH (12:10)
--- NOTE | 2024-08-04 12:31 | Hospitalist Consultation ---
Date of Consultation August 04, 2024 Assessment & Plan (1) S/P lumbar spine operation: Henry Ga is a 69y/o F with PMHx of mitral valve prolapse, history of diverticulitis, persistent insomnia and other problems listed below who was referred to our [facility] for post-operative medical management after undergoing lumbar decompression L1-L2 and lumbar fusion T11-L2 performed by Dr. Dawson on 08/04/24. S/P Lumbar Spine Operation: POD#0 s/p lumbar decompression L1-L2 and lumbar fusion T11-L2 with Dr. Dawson. EBL: 200mL & Pre-Op Hgb: 14 [07/15/24] Per ortho for pain control, wound care, anticoagulation and activities. Continue incentive spirometry, PT/OT when appropriate. Follow AM labs. Monitor H/H for acute blood loss anemia and transfuse blood products PRN. Post-Operative Hypotension: SBP has been in the upper 90s to low 100s post-operatively. Patient w/o any symptoms as per HPI. Patient with h/o lower BP at baseline. Will continue to monitor BP. Could utilize NSS bolus if she becomes symptomatic. Persistent Insomnia: Can continue home trazodone for now. Will hold if patient becomes overly drowsy and/or BP drops further. DVT Prophylaxis: SCDs/TEDs as per primary team. Code Status: FULL CODE PCP: Rowena Lau PA-C Disposition: Admitted in Med/Surg - Discharge planning as per primary care team. Thank you for this consultation. We will follow the patient with you during their hospital stay. You can reach a member of the [facility] 16/06 via [employer]. Patient seen in collaboration with Dr. Ledezma. Please see addendum. I spent a total of 40 minutes coordinating, documenting, and providing care for this patient excluding time spent in the performance of separately billed services. This included personally reviewing all current laboratories and imaging studies, medical reconciliation, outpatient chart review and discussion with specialists. This chart was completed in part utilizing Speech Voice Recognition Software. Grammatical errors, random word insertions, pronoun errors, and incomplete sentences are an occasional consequence of this system due to software limitations, ambient noise, and hardware issues. Any formal questions or concerns about the content, text, or information contained within the body of this dictation should be directly addressed to the provider for clarification. Supervising Physician Co-Signing Physician Notes Patient is a 69-year-old female with history of diverticulitis, hyperplastic polyp, insomnia, mitral valve prolapse and other medical problems was consulted for postop medical management. Patient underwent lumbar decompression, fusion surgery by Dr. Dawson for lumbar spinal stenosis with neurogenic claudication. Patient states having pain at surgical site but otherwise feels well currently. Denies any chest pain, dyspnea, nausea, vomiting, abdominal pain, dizziness. Please review HPI for complete details of presentation. I personally reviewed blood work from July 17, lumbar x-ray. Physical Exam: Vitals signs as noted above General Appearance:Moderately built and nourished, no apparent distress Head: normocephalic, Atraumatic Eyes: normal inspection, EOMI Neck: supple, Trachea midline Respiratory/Chest: Normal breath sounds, CTA, No accessory muscle use Cardiovascular: S1, S2, No murmur Abdomen/GI:Soft, Non tender, Bowel sounds present Back: Surgical site in dressing,+ drain Extremities/Musculoskeletal:normal inspection, no edema Neurologic/Psych:AAOX3, grossly no focal neurological deficits Skin: normal color, warm Postoperative state S/P lumbar decompression, fusion surgery by Dr. Dawson on 08/04/2024 Monitor for postop anemia Incentive spirometry Bowel regimen to prevent constipation Pain control, wound care, activity, DVT prophylaxis as per primary team. Postoperative hypertension Continue IV fluids Currently asymptomatic Monitor BP closely I personally interviewed and examined at bedside. Patient's care is coordinated with Audrey Mayberry PA-C. I have reviewed the advanced practitioner's documentation, and I agree with plan of care. Please refer to the documentation above for details of patient's presentation and for discussion of other issues. I spent a total of22 minutes coordinating, documenting, and providing care for this patient excluding time spent in the performance of separately billed services. History of Present Illness Reason for Consultation: Post-Operative Medical Management Requesting Physician: Rickey Dawson DO Attending Physician: Rickey Dawson DO History of Present Illness Linsey Ga is a 69y/o F with PMHx of mitral valve prolapse, history of diverticulitis, persistent insomnia, history of varicella and other problems listed below who was referred to our [facility] for post-operat marlene medical management after undergoing lumbar decompression L1-L2 and lumbar fusion T11-L2 performed by Dr. Dawson on 08/04/24. History obtained from patient and associated chart review. Patient was lying on her left side when I entered the room. Reports 3-4 out of 10 pain at this time. Feeling overall comfortable. Tolerated some pudding prior to my arrival without any issue. Has been drinking sips of water as well. Leonard catheter in place and draining clear, yellow urine without issue. Has been hypotensive with SBP in the upper 90s to low 100s since being post-op. Was 99/51 during our conversation. Patient denies any lightheadedness, dizziness or visual changes. Reports her BP is always "on the lower side" at home when she checks it. Offers no major concerns or questions at this time. Allergies Allergy/AdvReac Type Severity Reaction Status Date / Time Penicillins Allergy Severe Throat Verified 08/04/24 06:54 swelling Home Medications Medication Instructions Recorded Confirmed Type caffeine 200 mg tablet 200 mg PO BID PRN Other 07/09/24 08/04/24 History cholecalciferol (vitamin D3) 125 125 mcg PO DAILY 07/09/24 08/04/24 History mcg (5,000 unit) tablet (Vitamin D3) ibuprofen 200 mg tablet 200 mg PO HS 07/09/24 08/04/24 History magnesium 200 mg tablet 400 mg PO QAM 07/09/24 08/04/24 History naproxen sodium 220 mg tablet 440 mg PO QAM 07/09/24 08/04/24 History (Aleve) thiamine HCl (vitamin B1) 100 mg 100 mg PO DAILY 07/09/24 08/04/24 History tablet trazodone 100 mg tablet 50 mg PO HS 07/09/24 08/04/24 History Patient History Medical History History of bladder infections Post-op after last lumbar surgery approximately 2012, felt to be r/t catheter use with surgery Mitral valve prolapse Echo (2014, [facility]): Borderline posterior mitral leaflet prolapse, Mild MR PCP review of Echo 07/12/14: "echocardiogram is basically normal.. very mild posterior leaflet prolapse seen but that is a longstanding problem" Lumbar stenosis with neurogenic claudication Surgical History Hx of foot surgery nerve removed from right foot History of postoperative nausea and vomiting severe History of bilateral tubal ligation History of arthroscopy Right knee x1, Left knee x1 History of colonoscopy History of tonsillectomy History of adenoidectomy History of lumbar fusion L3-5 Family History Mother Diabetes Social History Smoking Status: Never smoker Second Hand Exposure: No; Do You Dip or Chew Tobacco: No; Tobacco Cessation Education Requested by Patient: No Hx Alcohol Use: No Hx Substance Use: No Preferred Language: Luxembourgish Communication Ability: Effective Obstetrics Specialist Required: No Beliefs That Will Affect Care: None Current Living Situation: Spouse Other Information That Helps Us Care for You: No Feels Safe at Home: Yes Safety Concerns: Feels Safe At This Time Assistive Devices: None Review of Systems Review of Systems: At least ten systems reviewed and negative, except as noted in the HPI. Physical Exam Physical Exam: General: WD/WN, vitals as above, NAD, sitting up in bed, pleasant, conversing appropriately. A+Ox3, euthymic affect. HEENT: Normocephalic, atraumatic. PERRL, conjunctivae normal, anicteric sclerae.External ear and nose normal, oropharynx normal. Respiratory: Normal respiratory effort, lungs clear to auscultation, no wheeze, rales, rhonchi. No accessory muscle use. Cardiovascular: Regular rate, rhythm, no murmur, normal peripheral pulses, no BLE edema. Vessels: No JVD. Abdomen/GI: Normal bowel sounds, soft, nontender, no hepatosplenomegaly. : Leonard catheter in place and draining clear, yellow urine without issue. Extremities/Musculoskeletal: No cyanosis or clubbing, surgical dressing dry and intact. Neurologic: EOMI, no focal deficits, CN's II-XI not formally tested but appear grossly intact bilaterally. Skin: No rashes, normal color, warm/dry. VEDA drain x 1 intact and draining sero sanguineous fluid. Results & Data Results & Data Vital Signs (Past 12 Hours) Vital Signs Temp Pulse Pulse Resp BP Pulse Ox O2 Del Method 08/04/24 12:10 36.4 C L 81 16 104/61 99 Nasal Cannula 08/04/24 11:40 Nasal Cannula 08/04/24 11:40 36.5 C 75 16 109/61 100 Nasal Cannula 08/04/24 11:20 36.3 C L 87 14 98/67 L 100 Nasal Cannula 08/04/24 11:10 72 12 99/63 L 100 Nasal Cannula 08/04/24 11:00 71 14 100/61 100 Nasal Cannula 08/04/24 10:50 76 12 93/48 L 95 Nasal Cannula 08/04/24 10:40 76 14 122/83 100 Oxymask 08/04/24 10:30 78 14 121/67 100 Oxymask 08/04/24 10:23 36.2 C L 83 12 127/75 100 Oxymask 08/04/24 06:58 36.8 C 73 20 147/81 H 97 Room Air O2 Flow Rate 08/04/24 12:10 2 08/04/24 11:40 2 08/04/24 11:40 2 08/04/24 11:20 2 08/04/24 11:10 2 08/04/24 11:00 3 08/04/24 10:50 3 08/04/24 10:40 3 08/04/24 10:30 4 08/04/24 10:23 6 08/04/24 06:58 Diagnostic Findings Lumbar Spine X-Ray 08/04/24 07:45 FL lumbar spine 2-3V CLINICAL HISTORY: L1-2 LUMBAR DECOMP, T11-12 LUMBAR FUSION COMPARISON STUDY: None. FLUOROSCOPY TIME: 27 seconds FLUOROSCOPY IMAGES: 3 Ka,r: 10.6 mGy FINDINGS: Extensive posterior fusion hardware seen within the lower thoracic and lumbar spine. The exact levels are difficult to assess on the spot images. The hardware appears intact. IMPRESSION: Fluoroscopic assistance as above. ACT 112: Negative or not required by law. Electronically signed by: Spencer Moreno M.D. 08/04/2024 12:34 PM Medications Administered Acetaminophen (Acetaminophen 500 Mg Tab) 1,000 mg PO PREOP ANDREY Stop: 08/04/24 18:00 Last Admin: 08/04/24 07:24 Dose: 1,000 mg Documented By: LUIS Celecoxib (Celebrex 200 Mg Cap) 200 mg PO PREOP ANDREY Stop: 08/04/24 18:00 Last Admin: 08/04/24 07:24 Dose: 200 mg Documented By: LUIS Gabapentin (Gabapentin 300 Mg Cap) 300 mg PO PREOP ANDREY Stop: 08/04/24 18:00 Last Admin: 08/04/24 07:24 Dose: 300 mg Documented By: LUIS Hydromorphone HCl (Hydromorphone Inj 2 Mg/Ml Syr/Vial) 0.5 mg IV Q5M PRN PRN Reason: PACU Use Only-Pain Stop: 08/04/24 15:47 Last Admin: 08/04/24 10:49 Dose: 0.5 mg Documented By: Admin: 08/04/24 10:44 Dose: 0.5 mg Documented By: ROMEO Lactated Ringer's (Lr) 1,000 mls @ 15 mls/hr IV .Q24H ANDREY Stop: 08/05/24 05:59 Last Infusion: 08/04/24 07:59 Dose: Infused Documented By: Admin: 08/04/24 07:24 Dose: 15 mls/hr Documented By: LUIS Lactated Ringer's (Lr) 1,000 mls @ 60 mls/hr IV .[id number] ANDREY Stop: 08/04/24 22:39 Last Admin: 08/04/24 07:25 Dose: Not Given Documented By: LUIS Clindamycin Phosphate (Cleocin/D5w) 900 mg in 50 mls @ 100 mls/hr IV PREOP ANDREY; Protocol Stop: 08/04/24 18:00 Last Infusion: 08/04/24 12:06 Dose: Infused Documented By: Admin: 08/04/24 08:00 Dose: 100 mls/hr Documented By: [id number] Lactated Ringer's (Lr) 1,000 mls @ 100 mls/hr IV .Q10H ANDREY Stop: 09/03/24 11:52 Last Admin: 08/04/24 11:45 Dose: 100 mls/hr Documented By: TITI Discontinued Medications Bupivacaine HCl/Epinephrine Bitart (Bupivacaine/Epinephrine 0.25% 1:200,000 30 Ml Vial) Confirm Administered Dose 30 ml .ROUTE .STK-MED ONE Stop: 08/04/24 07:28 Last Admin: 08/04/24 08:53 Dose: 25 ml Documented By: HORACE Cefazolin Sodium (Cefazolin 330 Mg/Ml 1 Gm Vial) Confirm Administered Dose 990 mg .ROUTE .STK-MED ONE Stop: 08/04/24 07:29 Last Admin: 08/04/24 08:53 Dose: 990 mg Documented By: HORACE Miscellaneous ( Floseal Hemostatic Matrix 10ml) 10 ml TOP ONCE ONE Stop: 08/04/24 08:55 Last Admin: 08/04/24 09:57 Dose: 20 ml Documented By: HORACE Miscellaneous Information (Allergy Noted To Ordered Medication) 1 each N/A QSHIFT ANDREY Stop: 09/01/24 15:59 Last Admin: 08/04/24 12:12 Dose: Not Given Documented By: Admin: 08/04/24 12:10 Dose: Not Given Documented By: Admin: 08/04/24 12:10 Dose: Not Given Documented By: TITI Scopolamine (Scopolamine 1 Mg/72 Hr Tdsy Patch) Confirm Administered Dose 1 patch TD .STK-MED ONE Stop: 08/04/24 07:24 Last Admin: 08/04/24 07:24 Dose: 1 patch Documented By: LUIS
--- NOTE | 2024-08-04 12:36 | Fluoroscopy Report ---
FL lumbar spine 2-3V CLINICAL HISTORY: L1-2 LUMBAR DECOMP, T11-12 LUMBAR FUSION COMPARISON STUDY: None. FLUOROSCOPY TIME: 27 seconds FLUOROSCOPY IMAGES: 3 Ka,r: 10.6 mGy FINDINGS: Extensive posterior fusion hardware seen within the lower thoracic and lumbar spine. The ex act levels are difficult to assess on the spot images. The hardware appears intact. IMPRESSION: Fluoroscopic assistance as above. ACT 112: Negative or not required by law. Electronically signed by: Spencer Moreno M.D. 08/04/2024 12:34 PM
--- NOTE | 2024-08-04 14:06 | Anesthesiology Progress Note ---
Date of Service August 04, 2024 Anesthesia Post Procedure Vital Signs Vital Signs: Temp Pulse Pulse Pulse Resp BP Pulse Ox 08/04/24 13:40 36.4 C L 73 16 93/60 L 94 08/04/24 12:40 36.2 C L 70 16 99/51 L 99 08/04/24 12:10 36.4 C L 81 16 104/61 99 08/04/24 11:40 08/04/24 11:40 36.5 C 75 16 109/61 100 08/04/24 11:20 36.3 C L 87 14 98/67 L 100 08/04/24 11:10 72 12 99/63 L 100 08/04/24 11:00 71 14 100/61 100 08/04/24 10:50 76 12 93/48 L 95 08/04/24 10:40 76 14 122/83 100 08/04/24 10:30 78 14 121/67 100 08/04/24 10:23 36.2 C L 83 12 127/75 100 08/04/24 06:58 36.8 C 73 20 147/81 H 97 O2 Del Method O2 Flow Rate 08/04/24 13:40 Nasal Cannula 2 08/04/24 12:40 Nasal Cannula 2 08/04/24 12:10 Nasal Cannula 2 08/04/24 11:40 Nasal Cannula 2 08/04/24 11:40 Nasal Cannula 2 08/04/24 11:20 Nasal Cannula 2 08/04/24 11:10 Nasal Cannula 2 08/04/24 11:00 Nasal Cannula 3 08/04/24 10:50 Nasal Cannula 3 08/04/24 10:40 Oxymask 3 08/04/24 10:30 Oxymask 4 08/04/24 10:23 Oxymask 6 08/04/24 06:58 Room Air Pain Intensity Back: Pain Intensity: 3 Transfer of Care Handoff Completed per policy Notes Mental Status: alert / awake / arousable and participated in evaluation Nausea / Vomiting: adequately controlled Pain: adequately controlled Airway Patency, RR, SpO2: stable & adequate BP & HR: stable & adequate Hydration State: stable & adequate Anesthetic Complications: no major complications apparent and Pt Satisfied with anesthetic care
[2024-08-04] MEDS: SODIUM CHLORIDE 0.9% 1,000 ML IV SCH (15:15)
[2024-08-04] MEDS: ACETAMINOPHEN 1,000 MG/100 ML VIAL IV PRN (15:16)
[2024-08-04] MEDS: CLINDAMYCIN/D5W 600 MG/50 ML BAG IV SCH (16:06)
[2024-08-04] MEDS: oxyCODONE HCL IR 5 MG TAB (IMMEDIATE RELEASE) PO PRN (21:18)
[2024-08-04] MEDS: DOCUSATE SODIUM/SENNA 50/8.6MG TAB PO SCH (21:19)
[2024-08-04] MEDS: traZODone HCL 50 MG TAB PO SCH (21:59)
[2024-08-05] MEDS: POLYETHYLENE (MIRALAX) 17 GM PACK PO SCH (05:32)
[2024-08-05] MEDS: HYDROmorphone INJ 1 MG/ML SYRINGE IV PRN (05:32)
[2024-08-05] MEDS: traMADol HCL 50 MG TABLET PO PRN (07:58)
[2024-08-05] MEDS: dexAMETHasone 6 MG in SYRINGE 0 ML IV SCH (08:01)
[2024-08-05] MEDS: MAGNESIUM OXIDE 400 MG TAB PO SCH (08:01)
[2024-08-05] MEDS: THIAMINE HCL 100 MG TAB PO SCH (08:02)
--- NOTE | 2024-08-05 08:20 | Orthopedic Progress Note ---
Date of Service August 05, 2024 Assessment & Plan (1) Neurogenic claudication due to lumbar spinal stenosis: Plan: This time initiate physical therapy monitor VEDA operatively discharge over the next few days. Admission and Anticipated Discharge Date Admission Date: August 04, 2024 Subjective Back pain controlled leg symptoms improved Physical Exam Physical Exam: Patient is sitting up in bed. She is comfortable. She is neurologically intact. Results & Data Vital Signs (Past 12 Hours) Vital Signs Temp Pulse Resp BP BP Pulse Ox O2 Del Method 08/05/24 07:33 36.5 C 73 16 102/65 99 Room Air 08/05/24 03:18 36.5 C 81 16 112/74 95 Nasal Cannula 08/04/24 23:00 36.7 C 79 16 123/75 99 Nasal Cannula 08/04/24 21:20 Nasal Cannula O2 Flow Rate 08/05/24 07:33 2 08/05/24 03:18 2 08/04/24 23:00 2 08/04/24 21:20
[2024-08-05 08:49] LABS: Basophils # (auto) 0.01 K/uL (0.00-0.20); Basophils % (auto) 0.1 %; Eosinophils # (auto) 0.01 K/uL (0.00-0.50); Eosinophils % (auto) 0.1 %; Hematocrit (blood only) 33.6 % (37.0-47.0); Hemoglobin 10.8 g/dl (12.0-16.0); Immature Granulocytes # (auto) 0.04 K/uL (0.01-0.20); Immature Granulocytes % (auto) 0.4 %; Lymphocytes # (auto) 1.55 K/uL (1.20-3.40); Lymphocytes % (auto) 16.3 %; Mean Corpuscular Hemoglobin 29.4 pg (25.0-34.0); Mean Corpuscular Hgb Conc 32.1 g/dL (32.0-36.0); Mean Corpuscular Volume 91.6 fL (80.0-100.0); Mean Platelet Volume 10.9 fL (9.4-12.4); Monocytes # (auto) 0.96 K/uL (0.11-0.59); Monocytes % (auto) 10.1 %; Neutrophils # (auto) 6.92 K/uL (1.40-6.50); Platelet Count 164 K/uL (130-400); RDW Coefficient of Variation 13.4 % (11.5-14.5); RDW Standard Deviation 45.3 fL (36.4-46.3); Red Blood Count 3.67 M/uL (4.20-5.40); White Blood Count 9.49 K/ul (4.8-10.8)
[2024-08-05 09:10] LABS: Calcium 8.3 mg/dl (8.6-10.3); Magnesium 1.8 mg/dl (1.7-2.4); Potassium 4.3 mmol/L (3.5-5.1)
[2024-08-05 09:16] LABS: BUN Creatinine Ratio 23.9 (10-20); Creatinine Clr Calc Pharmacy 72.3 ml/min; Est GFR (African American) 103.2 ml/min; Est GFR (Non-African American) 89.1 ml/min; Phosphorus 3.5 mg/dl (2.5-4.9)
--- NOTE | 2024-08-05 12:51 | Hospitalist Progress Note ---
Date of Service August 05, 2024 Assessment & Plan (1) S/P lumbar spine operation: Plan 69y/o F with PMHx of mitral valve prolapse, history of diverticulitis, persistent insomnia and other problems listed below [facility] after undergoing lumbar decompression L1-L2 and lumbar fusion T11-L2 performed by Dr. Dawson on 08/04/24. S/P Lumbar Spine Operation: POD#1 s/p lumbar decompression L1-L2 and lumbar fusion T11-L2 with Dr. Dawson. EBL: 200mL & Pre-Op Hgb: 14 [07/15/24] Hb is 10.8 today Likely blood loss anemia from surgery + dilutional from IVF Pain control PT/OT Post-Operative Hypotension: SBP has been in the upper 90s to low 100s post-operatively. Patient w/o any symptoms Resolved Persistent Insomnia: Continue home trazodone for now. DVT Prophylaxis: SCDs/TEDs as per primary team. Code Status: FULL CODE PCP: Rowena Lau PA-C I spent a total of 45 minutes coordinating, documenting and providing care for this patient excluding time spent in performance of separately billed services Admission and Anticipated Discharge Date Admission Date: August 04, 2024 Subjective Patient seen and examined Reports surgical site is well controlled Had walked around with PT Yet to have a BM but passing flatus Physical Exam Constitutional: + well hydrated; no acute distress Eyes: PERRL, conjunctivae normal, anicteric sclerae ENMT: external ear and nose normal, oropharynx normal Respiratory: normal respiratory effort, lungs clear to auscultation Cardiovascular: Rate/Rhythm: regular rate and regular rhythm Gastrointestinal (Abdomen): normal bowel sounds, soft, nontender, no hepatosplenomegaly Musculoskeletal: Clean dressing over surgical site Drain in situ Neurologic: PERRL, EOMI, accommodation nl, no face palsy, no dysarthria Psychiatric: A+Ox3, euthymic affect Results & Data Results & Data Vital Signs (Past 12 Hours) Vital Signs Temp Pulse Resp BP BP Pulse Ox O2 Del Method 08/05/24 11:00 37.1 C 61 16 118/64 98 Room Air 08/05/24 08:00 Room Air 08/05/24 07:33 36.5 C 73 16 102/65 99 Room Air 08/05/24 03:18 36.5 C 81 16 112/74 95 Nasal Cannula O2 Flow Rate 08/05/24 11:00 08/05/24 08:00 08/05/24 07:33 2 08/05/24 03:18 2 Laboratory Results Abnormal lab results 08/05/24 Range/Units 08:10 RBC 3.67 L (4.20-5.40) M/uL Hgb 10.8 L (12.0-16.0) g/dl Hct 33.6 L (37.0-47.0) % Neut # (Auto) 6.92 H (1.40-6.50) K/uL [place] # (Auto) 0.96 H (0.11-0.59) K/uL BUN/Creatinine Ratio 23.9 H (10-20) Glucose 114 H (70-99(Fasting)) mg/dl Calcium 8.3 L (8.6-10.3) mg/dl
[2024-08-06 05:46] LABS: Appearance Urine Clear (Clear); Bacteria Urine Automated 4+ (None Seen); Bilirubin Urine Negative (Negative); Blood Urine Trace (Negative); Cast Urine Automated 0-2 /lpf (0-2); Color Urine Yellow; Epithelial Cell Urine Auto 0-2 /hpf (0-2); Glucose Urine UA Negative (Negative); Ketones Urine Trace (Negative); Leukocyte Esterase Urine 2+ (Negative); Nitrite Urine Positive (Negative); Protein Urine Negative (Negative); RBC Urine Automated 0-2 /hpf (0-2); Specific Gravity Urine 1.014 (1.000-1.030); Urobilinogen Urine Negative (Negative); WBC Urine Automated 21-50 /hpf (0-5)
[2024-08-06 06:13] LABS: Hematocrit (blood only) 31.6 % (37.0-47.0); Hemoglobin 10.3 g/dl (12.0-16.0); Mean Corpuscular Hemoglobin 29.3 pg (25.0-34.0); Mean Corpuscular Hgb Conc 32.6 g/dL (32.0-36.0); Mean Platelet Volume 11.3 fL (9.4-12.4); Platelet Count 157 K/uL (130-400); RDW Coefficient of Variation 13.5 % (11.5-14.5); RDW Standard Deviation 44.6 fL (36.4-46.3); Red Blood Count 3.51 M/uL (4.20-5.40); White Blood Count 8.69 K/ul (4.8-10.8)
[2024-08-06 06:34] LABS: Calcium 8.5 mg/dl (8.6-10.3); Creatinine Clr Calc Pharmacy 75.7 ml/min; Est GFR (African American) 104.8 ml/min; Est GFR (Non-African American) 90.4 ml/min; Potassium 4.2 mmol/L (3.5-5.1)
[2024-08-06] MEDS: AZTREONAM 2,000 MG in DEXTROSE 5% MINI-B 100 ML IV SCH (06:48)
[2024-08-06] MEDS: ONDANSETRON INJ 2 MG/ML 2 ML VIAL IV PRN (07:26)
--- NOTE | 2024-08-06 10:41 | Orthopedic Progress Note ---
Date of Service August 06, 2024 Assessment & Plan (1) Neurogenic claudication due to lumbar spinal stenosis: Plan: At this time we will continue physical therapy monitor VEDA output anticipate discharge home tomorrow. Plan This time could Admission and Anticipated Discharge Date Admission Date: August 04, 2024 Subjective Back pain controlled leg pain improved Physical Exam Physical Exam: Patient is ambulating halls. She is comfortable. Is for strength testing. Results & Data Vital Signs (Past 12 Hours) Vital Signs Temp Pulse Resp BP Pulse Ox O2 Del Method O2 Flow Rate 08/06/24 07:54 72 114/64 94 Room Air 08/06/24 07:26 36.5 C 60 14 110/60 97 Nasal Cannula 3 08/05/24 23:34 36.8 C 82 16 116/73 96 Room Air Queries Orthopedic Spine Acute Posthemorrhagic Anemia: Yes
--- NOTE | 2024-08-06 14:04 | Hospitalist Progress Note ---
Date of Service August 06, 2024 Assessment & Plan (1) S/P lumbar spine operation: Plan 69y/o F with PMHx of mitral valve prolapse, history of diverticulitis, persistent insomnia and other problems listed below [facility] after undergoing lumbar decompression L1-L2 and lumbar fusion T11-L2 performed by Dr. Dawson on 08/04/24. S/P Lumbar Spine Operation: POD#2 s/p lumbar decompression L1-L2 and lumbar fusion T11-L2 with Dr. Dawson. EBL: 200mL & Pre-Op Hgb: 14 [07/15/24] Likely blood loss anemia from surgery + dilutional from IVF Hb is stable in 10s yesterday and today Pain control Continue PT/OT Post-Operative Hypotension: SBP has been in the upper 90s to low 100s post-operatively. Patient w/o any symptoms Resolved Urinary tract infection UA suggestive of UTI Currently on aztreonam due to penicillin allergy Reports feeling better since starting antibiotics Will follow up urine culture Persistent Insomnia: Continue home trazodone for now. DVT Prophylaxis: SCDs/TEDs as per primary team. Code Status: FULL CODE PCP: Rowena Lau PA-C I spent a total of 40 minutes coordinating, documenting and providing care for this patient excluding time spent in performance of separately billed services Admission and Anticipated Discharge Date Admission Date: August 04, 2024 Subjective Patient seen and examined Reported she had dizziness earlier which has resolved so far Reports urinary frequency overnight and this morning Denied dysuria but stated it felt like when she had a UTI. Denied hematuria. No fever, chills, nausea, vomiting, abd pain Surgical site pain is well controlled Had a BM today Was started on antibiotics by Patient Transport Orderly for UTI due to symptoms and UA suggestive of UTI Physical Exam Constitutional: + well hydrated; no acute distress Eyes: PERRL, conjunctivae normal, anicteric sclerae ENMT: external ear and nose normal, oropharynx normal Respiratory: normal respiratory effort, lungs clear to auscultation Cardiovascular: Rate/Rhythm: regular rate and regular rhythm Gastrointestinal (Abdomen): normal bowel sounds, soft, nontender, no hepatosplenomegaly Musculoskeletal: Clean dressing over surgical site, drain in situ Neurologic: PERRL, EOMI, accommodation nl, no face palsy, no dysarthria Psychiatric: A+Ox3, euthymic affect Results & Data Results & Data Vital Signs (Past 12 Hours) Vital Signs Temp Pulse Resp BP Pulse Ox O2 Del Method O2 Flow Rate 08/06/24 07:54 72 114/64 94 Room Air 08/06/24 07:26 36.5 C 60 14 110/60 97 Nasal Cannula 3 Laboratory Results Abnormal lab results 08/04/24 08/06/24 08/06/24 Range/Units 06:42 05:20 05:21 RBC 3.51 L (4.20-5.40) M/uL Hgb 10.3 L (12.0-16.0) g/dl Hct 31.6 L (37.0-47.0) % BUN/Creatinine Ratio 25.0 H (10-20) Calcium 8.5 L (8.6-10.3) mg/dl Urine Ketones Trace H (Negative) Urine Blood Trace H (Negative) Urine Nitrite Positive A (Negative) Ur Leukocyte Esterase 2+ H (Negative) Urine WBC (Auto) 21-50 H (0-5) /hpf Urine Bacteria (Auto) 4+ H (None Seen) Crossmatch See Detail
--- NOTE | 2024-08-07 08:03 | Orthopedic Progress Note ---
Date of Service August 07, 2024 Assessment & Plan (1) Neurogenic claudication due to lumbar spinal stenosis: Plan: Patient is stable at this point. She is still having significant amount of drainage. I would like to keep her today due to the drainage and her lack of complete pain control. She is getting get up and walk stable continue with GI DVT prophylaxis and pain control measures. Will see her first thing tomorrow morning and if all is going well likely discharge her tomorrow. Admission and Anticipated Discharge Date Admission Date: August 04, 2024 Subjective Patient was seen bedside in room 307. She is postop day #3 status post thoracolumbar decompression connecting to her previous hardware from T11 back down to S1. She states she is still having quite a bit of pain at this point. She had a better night last night but still did not sleep very well. She is getting some pain going off of the right ribs. She is not having any radicular complaints. She did have a bowel movement. She is tolerating p.o. well. She has not had any fevers or chills. She denies any other numbness, tingling, or paresthesias. Physical Exam Physical Exam: On exam she is alert and oriented. Her strength and sensation are both intact her abdomen is soft nontender calves are supple and nontender. Her VEDA drain is in place and has put out 40 cc on the last shift and 50 cc on the previous. Cardiovascular exam reveals no gross abnormalities. Visual quigley are grossly intact. Results & Data Vital Signs (Past 12 Hours) Vital Signs Temp Pulse Pulse Resp BP Pulse Ox O2 Del Method 08/07/24 07:28 36.6 C 69 16 116/66 94 Room Air 08/06/24 23:49 36.4 C L 81 18 130/73 100 Room Air
--- NOTE | 2024-08-07 14:37 | Hospitalist Progress Note ---
Date of Service August 07, 2024 Assessment & Plan (1) S/P lumbar spine operation: Plan 69y/o F with PMHx of mitral valve prolapse, history of diverticulitis, persistent insomnia and other problems listed below [facility] after undergoing lumbar decompression L1-L2 and lumbar fusion T11-L2 performed by Dr. Dawson on 08/04/24. S/P Lumbar Spine Operation: POD#3 s/p lumbar decompression L1-L2 and lumbar fusion T11-L2 with Dr. Dawson. EBL: 200mL & Pre-Op Hgb: 14 [07/15/24] Likely blood loss anemia from surgery + dilutional from IVF Hb was stable in 10s post op Pain control Continue PT/OT Post-Operative Hypotension: SBP has been in the upper 90s to low 100s post-operatively. Patient w/o any symptoms Resolved Urinary tract infection UA suggestive of UTI UCx grew GNR Currently on aztreonam due to penicillin allergy Reports feeling better since starting antibiotics Persistent Insomnia: Continue home trazodone for now. DVT Prophylaxis: SCDs/TEDs as per primary team. Code Status: FULL CODE PCP: Rowena Lau PA-C I spent a total of 40 minutes coordinating, documenting and providing care for this patient excluding time spent in performance of separately billed services Admission and Anticipated Discharge Date Admission Date: August 04, 2024 Subjective Patient seen and examined Reports urinary frequency is improving Denied hematuria, dysuria Reports surgical site pain was well controlled Denied any other complaints on ROS Physical Exam Constitutional: + well hydrated; no acute distress Eyes: PERRL, conjunctivae normal, anicteric sclerae ENMT: external ear and nose normal, oropharynx normal Respiratory: normal respiratory effort, lungs clear to auscultation Cardiovascular: Rate/Rhythm: regular rate and regular rhythm Gastrointestinal (Abdomen): normal bowel sounds, soft, nontender, no hepatosplenomegaly Musculoskeletal: Clean dressing over surgical site with drain in situ Neurologic: PERRL, EOMI, accommodation nl, no face palsy, no dysarthria Psychiatric: A+Ox3, euthymic affect Results & Data Results & Data Vital Signs (Past 12 Hours) Vital Signs Temp Pulse Resp BP Pulse Ox O2 Del Method 08/07/24 11:19 36.9 C 75 17 104/68 97 Room Air 08/07/24 07:28 36.6 C 69 16 116/66 94 Room Air
[2024-08-07 14:56] VITALS: RESP 16
[2024-08-07 19:26] VITALS: O2SAT 96
[2024-08-08 07:32] VITALS: BP 115/74; PULSE 75; TEMP 97.9
--- NOTE | 2024-08-08 08:07 | Discharge Summary ---
Date of Service August 08, 2024 Admission HPI Per Admitting Provider This is a 69-year-old female presents chronic persistent back and leg pain after having course of nonoperative care she is here for surgical invention. Discharge Data Consultations 08/04/24 11:53 Consult Hospitalist Routine Procedures Performed Operation Date: 08/04/24 07:45 Actual Procedures p L1-L2 Lumbar Decompression, Interbody Cage L1-L2, T11-L2 Lumbar Fusion with Spinal Cord Monitoring - Rickey Dawson, Hospital Course (1) Neurogenic claudication due to lumbar spinal stenosis: Patient is a pleasant 69-year-old female with history physical examination and radiographic images consistent with the above-mentioned diagnosis. For this reason she was brought to the operating room on 08/04/2024 and undergone a lumbar decompression at L1 to and continuation of her fusion from T11 attaching back to her hardware at L2. This was performed by Dr. Dawson under general anesthesia. She of the operating room with a VEDA drain Leonard in place was transferred to PACU in stable condition. She was then transferred to the orthopedic floor. She was placed on GI DVT prophylaxis and utilize pain control measures. She was seen by physical therapy postoperative her 1 for ambulation and gait training. On postoperative day #4 she was deemed safe for home discharge. Her discharge instructions were to change her dressing once daily until there is no drainage from there is no drainage she may shower. Shower left anything heavier than 5 to 7 pounds she should not perform any full bending at the waist. She should ambulate around her house during the day. She is to be seen in our office approximately 2 weeks out from surgery or sooner if she developed any increased pain, fever, chills, drainage from the incision, or uncontrolled pain.
--- NOTE | 2024-08-08 10:12 | Hospitalist Progress Note ---
Date of Service August 08, 2024 Assessment & Plan (1) S/P lumbar spine operation: Plan 69y/o F with PMHx of mitral valve prolapse, history of diverticulitis, persistent insomnia and other problems listed below [facility] after undergoing lumbar decompression L1-L2 and lumbar fusion T11-L2 performed by Dr. Dawson on 08/04/24. S/P Lumbar Spine Operation: POD#4 s/p lumbar decompression L1-L2 and lumbar fusion T11-L2 with Dr. Dawson. EBL: 200mL & Pre-Op Hgb: 14 [07/15/24] Likely blood loss anemia from surgery + dilutional from IVF Hb was stable in 10s post op Pain well controlled Post-Operative Hypotension: SBP has been in the upper 90s to low 100s post-operatively. Patient w/o any symptoms Resolved Urinary tract infection Had urinary freq after craig removal UA suggestive of UTI UCx grew Pansensitive E coli Was initially on aztreonam inpatient due to penicillin allergy Discharged on few days of ciprofloxacin to complete treatment. Patient had tolerated cipro well in the past Persistent Insomnia: Continue home trazodone Admission and Anticipated Discharge Date Admission Date: August 04, 2024 Subjective Patient seen and examined Reports surgical site pain is well controlled Has been moving around No other complaints on ROS today Physical Exam Constitutional: + well hydrated; no acute distress Eyes: PERRL, conjunctivae normal, anicteric sclerae ENMT: external ear and nose normal, oropharynx normal Respiratory: normal respiratory effort, lungs clear to auscultation Cardiovascular: Rate/Rhythm: regular rate and regular rhythm Gastrointestinal (Abdomen): normal bowel sounds, soft, nontender, no hepatosplenomegaly Musculoskeletal: Clean dressing over surgical site Neurologic: PERRL, EOMI, accommodation nl, no face palsy, no dysarthria Psychiatric: A+Ox3, euthymic affect Results & Data Results & Data Vital Signs (Past 12 Hours) Vital Signs Temp Pulse Resp BP Pulse Ox O2 Del Method 08/08/24 07:31 36.6 C 75 16 115/74 96 Room Air
== END 2024-08-08 11:46 | disposition home or self-care (01) | DRG 454 ==
LOC: ASU 06:12 → 3E 10:12